=== PATIENT | male | born 1990 | race Caucasian/White ===

== ENCOUNTER 2024-03-11 19:22 | Emergency (ER) | payer OTHER ==
[2024-03-11 19:52] VITALS: BP 148/95; PULSE 92; RESP 18; TEMP 98.6; BMI 29.8
[2024-03-11] MEDS ORDERED: IBUPROFEN 600 MG TABLET (FP) PO ONE ×2 (20:13→20:25)
[2024-03-11] MEDS ORDERED: AMOX TR/POT CLAV 875MG/125MG TABLETS (FP) ONE (20:13)
[2024-03-11] MEDS: AMOX TR/POT CLAV 875MG/125MG TABLETS (FP) PO ONE (20:18)
[2024-03-11] MEDS: IBUPROFEN 600 MG TABLET (FP) PO ONE (20:19)
== END 2024-03-11 20:51 | disposition home or self-care (01) ==
LOC: JER 19:22
DX: S50.812A Abrasion of left forearm, initial encounter (principal); W54.0XXA Bitten by dog, initial encounter; Y93.01 Activity, walking, marching and hiking
CPT/HCPCS: 99283-25